=== PATIENT | female | born 1945 | race Caucasian/White ===

== ENCOUNTER → 2018-06-05 09:48 | Outpatient (CLI) | payer MEDICARE, SELFPAY ==
--- NOTE | 2018-06-05 | DI.CT.S_ITS ---
PROCEDURE: CT UE RT WO CON INDICATIONS: OSTEOARTHRITIS RIGHT SHOULDER. RIGHT SHOULDER PAIN TECHNIQUE: Noncontrast 1-1.5 mm thick sections acquired from the acromioclavicular joint to the inferior scapula, with coronal and sagittal reformatting. COMPARISON: [facility] [place], CR, XR SHOULDER 2+ VIEWS RIGHT, 11/24/2017, 13:43. FINDINGS: Image quality: Excellent. Bones: Severe glenohumeral joint osteoarthritis is seen with complete loss of joint space, extensive subchondral sclerosis and cyst formation, and prominent marginal osteophyte formation. There is superior migration of humeral head in relation to glenoid. Moderate acromioclavicular joint osteophytic changes are seen. No acute fracture or dislocation. No suspicious intraosseous lesion is noted. No gross abnormality is seen in visualized right ribs. Soft tissues: Large amount of glenohumeral joint effusion is seen. Multiple small calcifications are noted in the dependent portion of glenohumeral joint space, likely represent intra-articular loose bodies. There is suggestion of full-thickness rupture of rotator cuff tendons and severe atrophy of rotator cuff muscles. The visualized right upper lung field is clear. IMPRESSION: 1. Severe right glenohumeral joint osteoarthritis. Superior migration of humeral head in relation to glenoid. Mild to moderate acromioclavicular joint osteoarthritis. No fracture or dislocation. 2. Large amount of joint effusion with multiple calcified intra-articular loose bodies posteriorly. 3. Suggestion of full-thickness rupture of distal supraspinatus and infraspinatus. Severe rotator cuff muscle atrophy. Please correlate with MRI of right shoulder report from the same day. Dictated by: Tray Shirley M.D. on 06/05/2018 at 11:13 Approved by: Tray Shirley M.D. on 06/05/2018 at 11:33
--- NOTE | 2018-06-05 | DI.MRI.S_ITS ---
PROCEDURE: MR SHOULDER RT WO CON INDICATIONS: OSTEOARTHRITIS RIGHT SHOULDER TECHNIQUE: Noncontrast oblique coronal T2 fast spin echo with fat saturation, oblique sagittal T1 spin echo and T2 fast spin echo with fat saturation, axial T1 spin echo and T2 fast spin echo with fat saturation through the shoulder. COMPARISON: None. FINDINGS: Image quality: Excellent. Rotator cuff: There is full-thickness rupture of the distal supraspinatus and infraspinatus at their distal insertion of the humeral head with medial retraction of torn tendon fibers to the level of glenoid. Tendinosis and low-grade partial-thickness tear involving the superior to mid fibers of the distal subscapularis is seen. Sagittal images demonstrate severe supraspinatus and infraspinatus muscle atrophy. Bones and bursae: There is superior migration of humeral head in relation to glenoid. Extensive marrow edema throughout visualized portion of proximal humeral shaft and humeral head is seen. Mild edema in the adjacent glenoid is also noted. Severe glenohumeral joint osteoarthritis is seen with complete loss of joint space, extensive subchondral cyst formation and inferior margin osteophyte formation. Mild to moderate acromioclavicular joint osteoarthritis is also seen. There is large amount of fluid within glenohumeral joint and subacromial subdeltoid bursa. Debris is seen within joint space and bursal space, bursitis and synovitis cannot be excluded. Cannot rule out small loose bodies. Capsule and soft tissues: In the absence of intra-articular contrast, there is suggestion of extensive labral tear. The glenohumeral ligaments appear intact. The long head of the biceps tendon demonstrates normal location and morphology. The rotator interval appears normal, without fibrosis. The coracohumeral ligament is normal in thickness. IMPRESSION: 1. Full-thickness rupture of distal supraspinatus and infraspinatus at their distal humeral insertion with medial retraction of torn tendon fibers to the level of glenoid. Severe supraspinatus and infraspinatus muscle atrophy. 2. Tendinosis and low-grade partial-thickness tear involving superior to mid fibers of distal subscapularis. 3. Severe glenohumeral joint osteoarthritis and mild to moderate acromioclavicular joint osteoarthritis. No definite fracture or dislocation. Large amount of joint fluid in subacromial subdeltoid bursal fluid with thickened synovial lining and bursal lining and internal debris suggestive of synovitis and bursitis. Small loose body cannot be excluded. 4. Suggestion of extensive right shoulder labral tear. Dictated by: Tray Shirley M.D. on 06/05/2018 at 10:49 Approved by: Tray Shirley M.D. on 06/05/2018 at 10:58
== END ==
PROVIDERS: PCP Nurse Practitioner Gerontology; Visit Provider Orthopaedic Surgery
DX: M19.011 Primary osteoarthritis, right shoulder (principal); M75.121 Complete rotator cuff tear or rupture of right shoulder, not specified as traumatic; M25.411 Effusion, right shoulder; M25.511 Pain in right shoulder
CPT/HCPCS: 73200; 73221

== ENCOUNTER 2018-07-09 06:10 | Inpatient (IN) | payer MEDICARE, SELFPAY ==
[2018-06-22 08:46] VITALS: BMI 30.2
[2018-07-09] VITALS (17 sets, daily range): BP systolic 101–162; BP diastolic 52–91; PULSE 69–93; RESP 10–20; TEMP 36.2–37.2; O2SAT 92–96; BMI 30.2
--- NOTE | 2018-07-09 | DI.RAD.S_ITS ---
PROCEDURE: XR SHOULDER RT MIN 2V INDICATIONS: s/p TSA TECHNIQUE: 2 views of the shoulder were acquired. COMPARISON: [facility] [place], [place], XR SHOULDER 2+ VIEWS RIGHT, 11/24/2017, 13:43. FINDINGS: Bones: There is a shoulder arthroplasty. Shoulder prosthesis is in anatomic alignment. Postsurgical changes are noted. No suspicious bony lesions. Visualized ribs appear intact. Soft tissues: No suspicious soft tissue calcifications. IMPRESSION: Shoulder arthroplasty with prosthesis in anatomic alignment. Dictated by: Suzanne Baker M.D. on 07/09/2018 at 11:36 Approved by: Suzanne Baker M.D. on 07/09/2018 at 11:37
[2018-07-09] MEDS: LACTATED RINGERS 1,000 ML 100 ML IV (06:55)
[2018-07-09] MEDS: VANCOMYCIN 1,000 MG/200 ML FROZ.PIGGY 200 MG IV ×2 (07:00→18:59)
[2018-07-09] MEDS: MIDAZOLAM 2 MG/2 ML VIAL IV (07:33)
[2018-07-09] MEDS: fentaNYL 100 MCG/2 ML INJ IV (07:33)
--- NOTE | 2018-07-09 07:42 | PM.PREOP ---
Pre-operative Note Interval Note History & Physical reviewed/Exam performed by Physician: Yes Changes to H&P: No
--- NOTE | 2018-07-09 08:10 | SUR.PREOP ---
Block start time [0750] . Monitoring initiated and maintained throughout procedure. Oxygen and medications given per anesthesiologist instructions. Patient remained stable throughout procedure, no adverse reactions noted. Block end time [0808
[2018-07-09] MEDS: GENTAMICIN 140 MG in SODIUM CHLORIDE 0.9% 100 ML 103.5 ML IV (08:30)
--- NOTE | 2018-07-09 08:59 | SUR.OPER ---
Beach chair with inovation bed shoulder positioner. Lower body on padded OR bed. Head in foam padded head cradle, secured with straps. Non-operative arm secured <90 degrees abduction. Pillow under knees. Safety belt at thigh. Cloth tape over blanket over lower legs.
[2018-07-09] MEDS: LIDOCAINE 1% W/EPI INJ 20 ML INJ (09:12)
--- NOTE | 2018-07-09 10:21 | PM.OP.1 ---
Operative Date/Time/Diagnoses Date of procedure: 07/09/18 Time of procedure: 08:30 Pre-op diagnosis: Right cuff tear arthropathy Post-op diagnosis: same Procedure & Clinicians Procedure: Right reverse total shoulder arthroplasty Same procedure as scheduled: Yes Indications: Right cuff tear arthropathy Surgeon: Haseeb Myers Slide Fasteners Inspector: Fatemeh Rasmussen Anesthesia Type: General and Peripheral nerve block Operative Notes Findings: Significant cuff tear arthropathy with a high-riding humeral head which was articulating with the acromial arch. Also significant glenohumeral joint arthritic changes. Complete tear of the supraspinatus infraspinatus and subscapularis. Closure Type: primary Specimen(s): none sent Prosthetic devices, grafts, tissues, transplants, or devices: Small Arthrex glenoid base plate 36+ 4 lateral glenoid sphere Thirty-six neutral cup Size 6 stem Small 36 tray 2 24 mm peripheral locking screws 6.5 x 20 mm central screw Applied: drain(s) and implant(s) Estimated Blood Loss (mL): 50 Blood products transfused: none Procedure in detail: On date of service, Patient was met in the holding area. The operative site was signed and witnessed by the OR staff. The surgeries once again discussed with the patient and any remaining questions they had were answered fully. Patient was taken back to the operating theater and placed on the operating table in a supine position. Great care was taken to ensure that all bony prominences were properly padded. Patient was then placed into the beach chair position. The head and neck were properly positioned and secured. A timeout was performed verifying patient's name, procedure, and the operative site. The upper extremity was then prepped and draped in the normal sterile fashion. Previously, the bony anatomy and incision were marked out as well as injected with Marcaine with epinephrine. A deltopectoral approach was performed. 10 blade was used to incise the skin and fascial tissue. A deep knife was used to continue sharp dissection until the cephalic vein was visualized. The cephalic vein was dissected free allowing us to expose the deltopectoral interval. This interval was then developed. A Rosado elevator was used to free up the deltoid of any scarring both superficially as well as deeply. The vein and the deltoid were taken laterally while the pectoralis was taken medially. This gave us good visualization of the strap muscles. The clavipectoral fascia was removed and the strap muscles were then retracted medially with the pectoralis. This gave us stabilization of the subscapularis. The circumflex vessels were ligated and the subscapularis had been completely torn from the lesser tuberosity. The anterior-inferior capsular tissue was released off the humeral head. This allowed us to dislocate the humerus. Patient had end-stage arthritic changes to the humeral head as well as the glenoid with large osteophytes anterior inferiorly as well as posteriorly. Patient had a high riding humeral head which was articulating with the acromial arch. A Ronger was then used to remove the osteophytes. Next, cutting guide was placed and a saw was used to remove the humeral head. Once the head was removed it was templated. A starting awl was then used to find the canal and then the humerus was reamed and broached. Trial stem was placed and a variety of heads were trialed. A protector placed for the osteotomy was then placed and and we turned our attention back to the glenoid. The subscapularis was freed up and a 360? fashion. The degenerative anterior and inferior capsular tissue was removed. This was followed by removing the degenerative labral tissue from around the glenoid as well as the biceps insertion. This gave us good visualization of the glenoid. Guide pin was placed in the center of the glenoid. This was then drilled and then reamed. The glenoid base plate was secured with a central screw followed by drilling and placement of the inferior and superior screws. This provided secure fixation of the glenoid base plate. Next, a 36 +4 lateral glenosphere was impacted. We Return to our attention back to the humerus. The humerus was reamed again and a trial stem was placed. This was followed by a tray and we trialed polys. A +6 poly provided the best overall stability and range of motion. Next, the final implants were impacted into place and the shoulder was reduced and taken through range of motion. Shoulder had the appropriate amount of inferior translation as well as external and internal rotation and abduction and forward flexion. A drain was placed and the rest of the wound was closed in a layered fashion. The shoulder was then cleaned dried and dressed and the patient was taken to the PACU in stable condition. Patient will follow our postoperative protocol for reverse total shoulder arthroplasty. Complications: none Condition: stable Disposition: PACU Plan for aftercare: Patient will follow our postoperative protocol for reverse total shoulder arthroplasty.
--- NOTE | 2018-07-09 11:18 | SUR.PHASEI ---
Report called to CATALINA Abdi on acute care floor. pt in stable condition, vss. Pt alert and talking to RN. Pt sitting up, drsg to surgical site c/d/i. Hemavac drain intact. Surgical extremity pink, warm to touch, +pulse and +sensation. Pt denies any pain/discomfort or nausea at this time. Per Dr. Jacques, pt ok to be transferred to acute care floor at this time.
--- NOTE | 2018-07-09 11:36 | SUR.PHASEI ---
pt transferred to acute care floor in stable condition. pt alert and talking to Rn during transport. Bedside report given to Marilynn upon arrival to room. Transferred care of pt to Mitch/Suze Abdi at that time.
[2018-07-09] MEDS: LACTATED RINGERS 1,000 ML 125 ML IV ×2 (11:37→22:34)
--- NOTE | 2018-07-09 11:57 | PC.NURSE ---
1130- Pt arrived from PACU PO R reverse total shoulder arthroplasty w/ hemovac drain applied. Pt had nerve block in OR; denies pain at this time. A+Ox4; VSS. Bed in low position; LR hung & running per orders.
--- NOTE | 2018-07-09 13:30 | PT.IIE ---
Current Diagnoses Unspecified rotator cuff tear or rupture of right shoulder, not specified as traumatic (07/09/18) Surgery Performed Operation Date: 07/09/18 07:45 Actual Procedures p Total Shoulder Arthroplasty(Right) - Haseeb Myers MD Surgical History (Last Updated 06/22/18 @ 09:43 by Rachel Andujar RN) History of arthroplasty of left shoulder (Acute 03/15/16) History of bilateral tubal ligation (Acute) History of total left hip arthroplasty (Acute) S/P lumbar fusion (Acute) Medical History (Last Updated 06/22/18 @ 09:43 by Rachel Andujar RN) Depression (Acute) Former smoker (Acute) HTN (hypertension) (Acute) Hip dislocation, right (Acute ~04/2018) History of revision of total replacement of left hip joint (Acute) Hyperlipidemia (Acute) Impaired vision (Acute) Ovarian cyst, right (Acute) CHRIST (stress urinary incontinence, female) (Acute) Spinal stenosis (Acute) Physical Therapy Inpatient Evaluation/Re-Eval M1 PT/OT-IP Prior Functional Status Start: 07/09/18 14:58 Freq: NEEDED Status: Active Protocol: Document 07/09/18 13:30 AB (Rec: 07/09/18 15:25 AB [id number]) Medical Review Prior Functional Status Medical History Reviewed Yes Communication able to make needs known Mobility and Gait stated that she is independent with all mobilities and ambulation without AD Social History Household Members none Living Arrangements House Number of Floors (Floors) One Floor Number of Stairs To Enter/Railing? 2 steps with L rail ascending Home Environment Standard Height Toilet Tub/Shower Home Equipment Straight Cane Grab Bars In Shower Employment Status Retired Additional Social History Comment has neighbors that can help her M2 PT-IP Current Condition Start: 07/09/18 14:58 Freq: NEEDED Status: Active Protocol: Document 07/09/18 13:30 AB (Rec: 07/09/18 15:25 AB [id number]) Physical Therapy Current Condition Current Condition Evaluation Date 07/09/18 Treatment Diagnosis s/p R reverse TSA; difficulty in walking Onset Date 07/09/18 Precautions Shoulder Precautions Sling Internal Rotation to Body No External Rotation No Abduction Forward Flexion to 90 degrees Weight Bearing Status Weight Bearing Status Non-Weight Bearing Allowed Weight Bearing Amount (enter % NWB RUE or #) (%) M3 PT-IP Subjective Start: 07/09/18 14:58 Freq: NEEDED Status: Active Protocol: Document 07/09/18 13:30 AB (Rec: 07/09/18 15:25 AB [id number]) Subjective Physical Therapy Visit Type Type Initial Evaluation Visit Start Time 13:30 Visit Stop Time 14:15 Total Visit Minutes 45 Number of PROGRAM SUPPORT ASSISTANT Visits 0 Physical Therapy Visit Comments Patient Comments Pt requested to use the toilet Therapy Pain Assessment Pain Present Pain Present Denied Pain M4 PT-IP Mobility and Gait Start: 07/09/18 14:58 Freq: NEEDED Status: Active Protocol: Document 07/09/18 13:30 AB (Rec: 07/09/18 15:25 AB [id number]) PT-Bed Mobility Assessment Supine to Sit Supine to Sit Standby Assistance Bedrails Scooting Scooting to Edge of Bed Standby Assistance PT-Transfer Assessment Sit to and From Stand Sit to and from Stand Contact Guard Assistance Equipment Transfer Assistive Device None Gait Belt Orthotic/Prosthetic Devices or Brace: Yes Transfers Transfer Destination Toilet Transfer Technique pt ambulated to the toilet Transfer Ability Level of Assist Contact Guard Assistance Comments Mobility Comments pt completed supine to sit SBA and cues and used bed rail for assistance. pt stated that she has her foot board/ headboard at home to use. pt completed sit to stand CGA and ambulated to the toilet withoutAD CGA. pt presents with unsteady waddling gait. pt completed was able to maintain standing SBA while assisting with hygiene care. pt completed further ambulation. pt agreed to sit up on chair after ambulation. positioned pt on chair. call light and table placed within reach. Gait Assessment Gait Gait Assistance Required: Contact Guard Assist Distance (Feet) 200 Able to Maintain Weight Bearing Status Yes During Gait Assistive Devices Assistive Device None Gait Belt Orthotic/Prosthetic Devices or Brace: Yes Gait Deviations General Gait Pattern Decreased Stride Length Decreased Feet Clearance Wide Based Gait Factors Limiting Gait Function Factors Limiting Gait Function Decreased Activity Tolerance Decreased Sensation Decreased Strength Limited Range of Motion Poor Balance PT-Balance Assessment Sitting Balance and Reactions Static Sitting Balance Ability Good Dynamic Sitting Balance Ability Good Standing Balance and Reactions Static Standing Balance Ability Fair Dynamic Standing Balance Ability Fair Device Used without AD M5 PT-IP Objective Assessments Start: 07/09/18 14:58 Freq: NEEDED Status: Active Protocol: Document 07/09/18 13:30 AB (Rec: 07/09/18 15:25 AB [id number]) Orientation Orientation/Cognition Level of Alertness Alert Orientation Name Age Birthday Month Date Year Day of Week Place Situation Language Function Ability No Deficits Noted Gross Range of Motion Upper Extremity ROM Assessment Right Impaired Impairments RUE on sling Lower Extremity ROM Assessment Within Functional Limits Strength Lower Extremity Strength Assessment Within Functional Limits Sensation Assessment Sensation Gross Sensation Right UE Impaired Sensation Description Numbness Comments Sensation Comments pt just had R shoulder sx this morning M6 PT-IP Treatment Start: 07/09/18 14:58 Freq: NEEDED Status: Active Protocol: Document 07/09/18 13:30 AB (Rec: 07/09/18 15:25 AB [id number]) Physical Therapy Treatment Education Education Provided Precautions Weight Bearing Status Post-Op Packet Safety Other Treatments Other Treatment Performed assisted pt with adjusting UE sling. M7 PT-IP Assessment and Plan Start: 07/09/18 14:58 Freq: NEEDED Status: Active Protocol: Document 07/09/18 13:30 AB (Rec: 07/09/18 15:25 AB [id number]) PT Summary Assessment and Plan Potential Rehabilitation Potential Good Status of Condition at Evaluation Stable Summary Impairments Pain ROM Strength Balance Coordination Sensation Tone Cognition Bed Mobility Transfers Gait Activity Tolerance Assessment Summary pt requiring CGA with mobility and will likely improve during hospital stay. pt plans to go home with neighbors to assist her. pt had previous sx before for LUE and stated that she was able to manage by herself and her neighbors helped her as well. will continue to assess. Goals Bed Mobility Goal Independent Transfer Goal Independent Cane Gait Goal Independent Cane Gait Distance 250 Other Goals up/down 2 steps L rail ascending SBA Days to Meet Goals 3 Frequency of Treatment Frequency Of Treatment Twice a Day Treatment Plan Physical Therapy Treatment Plan Bed Mobility Training Transfer Training Gait Training Therapeutic Exercise Balance Retraining Post Op Education Discharge Planning Hot or Cold Pack Neuromuscular Re-ed Coordination Retraining Manual Therapy Other Recommendations and Next Treatment bed mobility, ambulation, Focus stair climbing, sling management Recommendations To Nursing Amount of Assist Needed 1 Person Assist Discharge Recommendations PT Discharge Recommendations Home with Assistance Outpatient PT
[2018-07-09] MEDS: ACETAMINOPHEN 325 MG TABLET 975 MG PO ×2 (14:35→23:41)
[2018-07-09] MEDS: ALBUTEROL/IPRATROPIUM 3 ML AMPUL INH (18:08)
[2018-07-09] MEDS: METOCLOPRAMIDE 10 MG/2 ML INJ IV (20:11)
[2018-07-10] VITALS: BP 125/87; PULSE 83; RESP 18; TEMP 36.4; O2SAT 98
[2018-07-10 04:00] VITALS: BP 145/74; PULSE 75; RESP 18; TEMP 36.4; O2SAT 97
[2018-07-10] MEDS: OXYCODONE IR 5 MG TABLET PO ×3 (04:52→12:25)
[2018-07-10] MEDS: IBUPROFEN 200 MG TABLET PO (04:55)
[2018-07-10 06:18] LABS: Hematocrit 34.4 % (36-46); Hemoglobin 11.4 g/dL (12.0-16.0); Mean Corpuscular HGB Conc 33.2 % (30-36); Mean Corpuscular Hemoglobin 30.6 PG (26-34); Mean Corpuscular Volume 92.3 fL (80-100); Platelet Count 231 X10^3/uL (150-400); Red Blood Cell Count 3.73 X10^6/uL (4.0-5.2); Red Cell Distribution Width 15.9 % (11.6-14.8); White Blood Cell Count 10.1 X10^3/uL (4.5-11.0)
--- NOTE | 2018-07-10 06:59 | PC.NURSE ---
Saline Locked at 0650, pain down to 4 with 5 mg po oxycodone and 200 mg ibuprofen po.
--- NOTE | 2018-07-10 08:21 | P.DS_ITS ---
History of Present Illness Date Patient Seen: 07/10/18 Chief complaint: 28529 Shoulder Reconstruction Narrative: Patient seen bedside status post right total shoulder arthroplasty with Dr. Myers on 07/09/2018. Patient is postop day 1. Patient is doing well, her pain is controlled with narcotics. She expresses understanding of her restrictions and will wear her sling until her postoperative visit. She receiv ed her narcotic prescription from the office at her preop visit but was given a script for Narcan today based on new narcotic requirements from [facility]. She expressed understanding of the side effects, proper storage, and disposal of opioids. She denies chest pain, shortness of breath, nausea, vomiting, or numbness and tingling into the right upper extremity. Discharge Providers Date of admission: 07/09/18 06:10 Primary care physician: KYM Holguin Consults: 07/09/18 10:14 Consult to Discharge Planning Routine Comment: Consult to Physical Therapy Evaluate & Treat Comment: Pendulums to right shoulder Physician Instructions: Evaluate and Treat Consult to Respiratory Therapy Evaluate & Treat Comment: Physician Instructions: Evaluate and treat Discharge provider: Ramonita Kee PA-C Discharge Date: 07/10/18 Summary Discharge Diagnosis: Right shoulder osteoarthritis Hospital Course: Patient was admitted to the hospital status post right total shoulder replacement on 07/09/[address] Myers. Patient tolerated the procedure well and no major complications. She was transition to the acute care floor and placed on the standard shoulder replacement pathway protocol. She was seen by Physical therapy who cleared her for discharge home. She is stable and ready for discharge on 07/10/2018. Status at Discharge Cognitive/behavioral status at discharge: Alert and oriented x4 Functional status at discharge: independent ambulation Overall status at discharge: patient is progressing back to baseline Time Spent with Patient Less than 30 minutes Exam Vital Signs (past 8 hours): - 07/10/18 04:00 Temperature 97.5 F L Pulse Rate 75 Respiratory Rate 18 Blood Pressure 145/74 H Pulse Oximetry 97 Oxygen Delivery Method Room Air Oxygen Flow Rate 0 Narrative Exam Narrative: Well-developed well-nourished no acute distress. Alert and migel ented x3. Aquacel dressing on right shoulder is clean dry and intact no signs of drainage minimal erythema and generalized swelling around the shoulder joint. Sling was slightly askew and this was fixed and the patient was instructed on sling usage. She is neurovascularly intact in the right upper extremity full range of motion of the elbow and wrist. Capillary refill less than 2 sec. Hemovac drain has minimal discharge. Objective Labs Result Diagrams: 07/10/18 05:15 Labs: Laboratory Results - last 24 hr 07/10/18 05:15 WBC 10.1 RBC 3.73 L Hgb 11.4 L Hct 34.4 L MCV 92.3 MCH 30.6 MCHC 33.2 RDW 15.9 H Plt Count 231 Discharge Plan Discharge Plan Patient Disposition: Home Discharge Med Rec/Prescriptions Prescriptions: New docusate sodium 100 mg Capsule 100 mg PO BID Qty: 0 RF: 0 Narcan 4 mg/actuation spray,non-aerosol 1 spray NASAL Q2M PRN (Reason: opioid overdose) Qty: 2 RF: 0 Continued pravastatin 20 MG tablet 40 mg PO HS Qty: 0 RF: 0 fluoxetine 40 MG capsule 40 mg PO QDAY Qty: 0 RF: 0 hydrochlorothiazide 12.5 mg Tablet 12.5 mg PO DAILY RF: 0 oxycodone 5 MG tablet 1 - 3 mg PO Q4HP PRN (Reason: pain) RF: 0 ibuprofen 200 mg Capsule 200 mg PO QID PRN (Reason: pain) RF: 0 ferrous gluconate 236 mg (27 mg iron) Tablet 236 mg PO DAILY RF: 0 pantoprazole 40 mg tablet,delayed release (DR/EC) 40 mg PO DAILY RF: 0 Follow up/Referrals: Cherelle Pringle ARNP [Primary Care Provider] - Provider Discharge Instructions Activity: No weightbearing operative arm, wear sling at all times. Cold/Heat Therapy: Apply ice to surgical site 20 minutes at a time as needed for pain/swelling. Skin/Wound/Dressing Care Report to your healthcare provider any signs of infection, such as:: chills, fever, night sweats, increased pain, unusual drainage and unusual redness Dressing: Keep dressing clean, dry, and intact. May shower with it in place but no soaking. Keep a dry washcloth or maxi pad in your arm pit of your operative arm. Visit Report/Discharge Packet Instructions: DI for Shoulder Replacement Discharge Data Primary Care Provider: Cherelle Pringle Attending Provider: Haseeb Myers Admit Date/Time: 07/09/18 06:10 Quality VTE Deep Vein Thrombosis/Pulmonary Embolism Present on Admission: No
[2018-07-10] MEDS: FLUoxetine 20 MG CAPSULE 40 MG PO (09:02)
[2018-07-10] MEDS: hydroCHLOROthiazide 12.5 MG CAPSULE PO (09:03)
[2018-07-10] MEDS: PANTOPRAZOLE 40 MG TABLET PO (09:04)
[2018-07-10] MEDS: DOCUSATE 100 MG CAPSULE PO (09:05)
--- NOTE | 2018-07-10 09:30 | PT.IPTN ---
Current Diagnoses Unspecified rotator cuff tear or rupture of right shoulder, not specified as traumatic (07/09/18) Surgery Performed Operation Date: 07/09/18 07:45 Actual Procedures p Total Shoulder Arthroplasty(Right) - Haseeb Myers MD Physical Therapy Treatment Note M2 PT-IP Current Condition Start: 07/09/18 14:58 Freq: NEEDED Status: Active Protocol: Document 07/09/18 13:30 AB (Rec: 07/09/18 15:25 AB [id number]) Physical Therapy Current Condition Current Condition Evaluation Date 07/09/18 Treatment Diagnosis s/p R reverse TSA; difficulty in walking Onset Date 07/09/18 Precautions Shoulder Precautions Sling Internal Rotation to Body No External Rotation No Abduction Forward Flexion to 90 degrees Weight Bearing Status Weight Bearing Status Non-Weight Bearing Allowed Weight Bearing Amount (enter % NWB RUE or #) (%) M3 PT-IP Subjective Start: 07/09/18 14:58 Freq: NEEDED Status: Active Protocol: Document 07/10/18 09:30 GGD (Rec: 07/10/18 12:10 GGD [id number]) Subjective Physical Therapy Visit Type Type Treatment Note Visit Start Time 09:05 Visit Stop Time 09:30 Total Visit Minutes 25 Number of SPECIAL AGENT IN CHARGE Visits 1 Physical Therapy Visit Comments Patient Comments Pt states she feels ready to go home. Therapy Pain Assessment Pain Present Pain Present Denied Pain M4 PT-IP Mobility and Gait Start: 07/09/18 14:58 Freq: NEEDED Status: Active Protocol: Document 07/10/18 09:30 GGD (Rec: 07/10/18 12:10 GGD [id number]) PT-Transfer Assessment Sit to and From Stand Sit to and from Stand Contact Guard Assistance Equipment Transfer Assistive Device None Gait Belt Orthotic/Prosthetic Devices or Brace: Yes Transfers Transfer Destination Bed Transfer Ability Level of Assist Contact Guard Assistance Gait Assessment Gait Gait Assistance Required: Contact Guard Assist Distance (Feet) 500 Able to Maintain Weight Bearing Status Yes During Gait Assistive Devices Assistive Device None Gait Belt Orthotic/Prosthetic Devices or Brace: Yes Gait Deviations General Gait Pattern Decreased Stride Length Decreased Feet Clearance Wide Based Gait Factors Limiting Gait Function Factors Limiting Gait Function Decreased Activity Tolerance Decreased Sensation Decreased Strength Limited Range of Motion Poor Balance Stair Climbing Assessment Evaluation Level of Assist On Stairs Contact Guard Assistance Devices Stair Climbing Assistive Devices Left Railing Technique/Endurance Stair Climbing Direction Ascend and Descend Stair Climbing Technique Step to Step Number of Steps Climbed 3 Query Text: Stair Climbing Set # Repetitions (reps) 1 Comments Stair Climbing Comments Pt ascend stairs forward and descend backwards using left rail. M5 PT-IP Objective Assessments Start: 07/09/18 14:58 Freq: NEEDED Status: Active Protocol: Document 07/09/18 13:30 AB (Rec: 07/09/18 15:25 AB [id number]) Orientation Orientation/Cognition Level of Alertness Alert Orientation Name Age Birthday Month Date Year Day of Week Place Situation Language Function Ability No Deficits Noted Gross Range of Motion Upper Extremity ROM Assessment Right Impaired Impairments RUE on sling Lower Extremity ROM Assessment Within Functional Limits Strength Lower Extremity Strength Assessment Within Functional Limits Sensation Assessment Sensation Gross Sensation Right UE Impaired Sensation Description Numbness Comments Sensation Comments pt just had R shoulder sx this morning M6 PT-IP Treatment Start: 07/09/18 14:58 Freq: NEEDED Status: Active Protocol: Document 07/10/18 09:30 GGD (Rec: 07/10/18 12:10 GGD [id number]) Physical Therapy Treatment Education Education Provided Precautions Safety M7 PT-IP Assessment and Plan Start: 07/09/18 14:58 Freq: NEEDED Status: Active Protocol: Document 07/10/18 09:30 GGD (Rec: 07/10/18 12:10 GGD [id number]) PT Summary Assessment and Plan Summary Assessment Summary Pt improving with mobility. She was safe with stair mobility. She has good understanding of her precautions. Pt safe for home D/C when medically stable. Frequency of Treatment Frequency Of Treatment Twice a Day Treatment Plan Other Recommendations and Next Treatment bed mobility, ambulation, Focus stair climbing, sling management Recommendations To Nursing Amount of Assist Needed 1 Person Assist Discharge Recommendations PT Discharge Recommendations Home with Assistance Outpatient PT
--- NOTE | 2018-07-10 11:07 | CM.IDA ---
Discharge Planning/Care Management CM Discharge Assessment Start: 07/10/18 10:59 Freq: Status: Active Protocol: Document 07/10/18 10:59 JENNIFER (Rec: 07/10/18 11:07 JENNIFER [id number]) Discharge Planning Assessment Assigned Talent Consultant DAVIN Nowak DPOA/Assigned Designee Name Danny Manuel, family Contact Information [phone] Advance Directives? No Advance Directives on File No History Provided By Patient Prior Living Arrangements House Household Members none Type of transporation used prior to Drives own vehicle admit Independent with ADL's Yes Is patient alert and oriented? Yes Barriers to Discharge No Comment Pt is POD#1from shoulder surgery w/ Dr Myers. Payer: Medicare/[employer]. Reviewed chart. PT eval indicates pt is indp and active at baseline, works. Pt is planning on returning home upon DC w/ friends and neighbors to assist. P: Home, likely today, w/ friends and outpt f/u as ordered by Dr Myers. PT recommends same. No barriers indicated. DAVIN Phan Discharge Plan Home Transportation Arrangement Friend Referrals Initiated None needed Review Status In Process
[2018-07-10 11:10] VITALS: PULSE 92; RESP 14; O2SAT 97
[2018-07-10] MEDS: ALBUTEROL/IPRATROPIUM 3 ML AMPUL INH (11:10)
--- NOTE | 2018-07-10 11:41 | PC.NURSE ---
Pts hemovac out, pressure dressing applied. Pt showered and will be discharging around 1300. Pt has an aquacel to her shoulder that is cdi and her sling is in place. She is waiting for lunch.
--- NOTE | 2018-07-10 12:34 | PC.NURSE ---
Pt up to shower with ot assist. No difficulty. Drsg changed, old dsg. removed, sutures intact. Fork dsg. applied. Flores removed without difficulty, cathetor intact. IV and dsg removed, pt tolerated will. cathetor intact. Pt. eating lunch and waiting for ride home.
== END 2018-07-10 13:25 | disposition home or self-care (01) | DRG 483 ==
PROVIDERS: Admitting Provider Orthopaedic Surgery; PCP Nurse Practitioner Gerontology; Visit Provider Orthopaedic Surgery
PROC: 0RQJ0ZZ Repair Right Shoulder Joint, Open Approach (ICD-10-PCS; CPT 23472; principal; 2018-07-09 07:45)
DX: M75.121 Complete rotator cuff tear or rupture of right shoulder, not specified as traumatic (principal); M19.011 Primary osteoarthritis, right shoulder; M25.712 Osteophyte, left shoulder; I10 Essential (primary) hypertension; E78.5 Hyperlipidemia, unspecified; Z87.891 Personal history of nicotine dependence
CPT/HCPCS: 36415; 64450; 73030; 85027; 94640; 97116; 97162; 97530; C1776; J1100; J2250; J2704; J2765; J3010; J3370